=== PATIENT | female | born 1975 | race Caucasian/White ===

== ENCOUNTER 2018-10-08 23:32 | Emergency (ER) | payer MEDICAID ==
[~2018-10-08] VITALS: Wt 64.4 kg
[2018-10-08 23:38] VITALS: Wt 64.4 kg
--- NOTE | 2018-10-09 00:02 | ERD ---
ER Documentation Chief Complaint Chief Complaint dry cough, diarrhea HPI The patient is a 43-year-old female, presenting to the ER because of cough, sore throat, subjective fever for the last 3 days, she has been taking the leftover amoxicillin for the last 3 days that give her the loose bowel movement, she denies chills, neck pain, chest pain, complains of diarrhea, denies hematemesis/hematuria. She denies smoking/drinking Past medical history: None Past surgical history: ROS All systems reviewed and are negative except as per history of present illness. Medications Home Meds Active Scripts Dextromethorphan Hb-Promethazine Hcl* (Promethazine DM* Syrup) 473 Ml Syrup, 10 ML PO Q6 PRN for COUGH, #120 ML Prov:ALDAIR GRANADOS MD 10/09/18 Ibuprofen* (Motrin*) 600 Mg Tab, 600 MG PO Q6H PRN for PAIN AND OR ELEVATED TEMP, #20 TAB Prov:ALDAIR GRANADOS MD 10/09/18 Reported Medications [None] No Conflict Check 03/06/11 Allergies Allergies: Coded Allergies: No Known Drug Allergies (Verified Allergy, Mild, 03/06/11) PMhx/Soc History of Surgery: Yes ( C-SECTIONS ) Anesthesia Reaction: No Hx Neurological Disorder: No Hx Respiratory Disorders: No Hx Cardiac Disorders: No Hx Psychiatric Problems: No Hx Miscellaneous Medical Probl: No Hx Alcohol Use: No Hx Substance Use: No Hx Tobacco Use: No Physical Exam Vitals Vital Signs Date Temp Pulse Resp B/P (MAP) Pulse Ox O2 O2 Flow FiO2 Time Delivery Rate 10/08/18 98.0 65 18 121/67 98 23:38 (85) Physical Exam Const: No acute distress. Head: Atraumatic. Eyes: Normal Conjunctiva. ENT: Normal External Ears, Nose and Mouth. Neck: Full range of motion. No meningismus. Resp: Clear to auscultation bilaterally. Cardio: Regular rate and rhythm. Abd: Soft, non distended, normal bowel sounds, minimal epigastric and left lower quadrant discomfort, no rigidity/right lower quadrant/right upper quadrant/rebound/CVA tenderness Skin: No petechiae or rashes. Back: No midline or flank tenderness. Ext: No cyanosis, or edema. Neur: Awake and alert. No focal deficit Psych: Normal Mood and Affect. Result Diagram: 10/09/18 0025 10/09/18 0025 Results 24 hrs Laboratory Tests Test 10/09/18 00:25 10/09/18 00:31 10/09/18 00:33 White Blood Count 6.9 10^3/ul Red Blood Count 4.20 10^6/ul Hemoglobin 12.9 g/dl Hematocrit 38.7 % Mean Corpuscular Volume 92.1 fl Mean Corpuscular Hemoglobin 30.7 pg Mean Corpuscular 33.3 g/dl Hemoglobin Concent Red Cell Distribution Width 14.0 % Platelet Count 284 10^3/UL Mean Platelet Volume 9.8 fl Immature Granulocytes % 0.300 % Neutrophils % 61.1 % Lymphocytes % 29.6 % Monocytes % 7.3 % Eosinophils % 1.3 % Basophils % 0.4 % Nucleated Red Blood Cells % 0.0 /100WBC Immature Granulocytes # 0.020 10^3/ul Neutrophils # 4.2 10^3/ul Lymphocytes # 2.0 10^3/ul Monocytes # 0.5 10^3/ul Eosinophils # 0.1 10^3/ul Basophils # 0.0 10^3/ul Nucleated Red Blood Cells # 0.0 10^3/ul Sodium Level 142 mmol/L Potassium Level 3.7 mmol/L Chloride Level 102 mmol/L Carbon Dioxide Level 27 mmol/L Anion Gap 13 Blood Urea Nitrogen 14 mg/dl Creatinine 0.58 mg/dl Est Glomerular Filtrat Rate mL/min > 60 mL/min Glucose Level 121 mg/dl Calcium Level 9.4 mg/dl Total Bilirubin 0.1 mg/dl Direct Bilirubin 0.00 mg/dl Indirect Bilirubin 0.1 mg/dl Aspartate Amino Transf (AST/SGOT) 30 IU/L Alanine 43 IU/L Aminotransferase (ALT/SGPT) Alkaline Phosphatase 51 IU/L Total Protein 7.8 g/dl Albumin 4.7 g/dl Globulin 3.10 g/dl Albumin/Globulin Ratio 1.51 Lipase 120 U/L Bedside Urine pH (LAB) 5.5 Bedside Urine Protein (LAB) Negative Bedside Urine Glucose (UA) Negative Bedside Urine Ketones (LAB) Negative Bedside Urine Blood Negative Bedside Urine Nitrite (LAB) Negative Bedside Urine Leukocyte Esterase Trace (L POC Beta HCG, Qualitative NEGATIVE Procedures/MDM MEDICAL MAKING DECISION: The patient is a 43-year-old female, presenting with acute viral syndrome, is above outpatient follow-up The differential diagnoses considered include but are not limited to bronchitis, pneumonia, UTI, pyelonephritis Departure Diagnosis: Primary Impression: Viral syndrome Condition: Good Comments She was discharged with Motrin and Phenergan DM I discussed the findings with the patient. I advised the patient to follow-up with the primary physician in about 2-3 days, sooner if needed and return if any concern. Disclaimer: Inadvertent spelling and grammatical errors are likely due to EHR/dictation software use and do not reflect on the overall quality of patient care. Also, please note that the electronic time recorded on this note does not necessarily reflect the actual time of the patient encounter. ALDAIR GRANADOS MD Oct 09, 2018 00:02
[2018-10-09] MEDS ORDERED: D-ME473S2 PO (02:09)
[2018-10-09] MEDS ORDERED: IBUP-1542 PO (02:09)
[2018-10-09 02:51] VITALS: BP 116/70; PULSE 64; RESP 18
== END 2018-10-09 02:55 | disposition home or self-care (01) ==
LOC: E/R 23:32
DX: B34.9 Viral infection, unspecified (principal); R40.2142 Coma scale, eyes open, spontaneous, at arrival to emergency department; R40.2362 Coma scale, best motor response, obeys commands, at arrival to emergency department; R40.2252 Coma scale, best verbal response, oriented, at arrival to emergency department
CPT/HCPCS: 36415; 80053; 81003; 81025; 83690; 85025; Z7502; 99283